=== PATIENT | female | born 1940 | race Caucasian/White ===

== ENCOUNTER 2023-04-24 09:26 | Outpatient (CLI) | payer MEDICARE, SELFPAY | END 2023-04-24 09:27 | disposition home or self-care (01) | LOC: NFLDREF 04-25 08:44 | PROVIDERS: PCP Internal Medicine; Visit Provider Internal Medicine | DX: Z00.00 Encounter for general adult medical examination without abnormal findings (principal); E78.5 Hyperlipidemia, unspecified; E03.9 Hypothyroidism, unspecified; M85.80 Other specified disorders of bone density and structure, unspecified site; I10 Essential (primary) hypertension; E78.41 Elevated Lipoprotein(a) | CPT/HCPCS: 80053; 80061; 82306; 84439; 84443 ==

== ENCOUNTER 2023-07-04 12:56 | Outpatient (CLI) | payer MEDICARE, SELFPAY | END 2023-07-04 12:57 | disposition home or self-care (01) | LOC: NFLDREF 07-06 09:26 | PROVIDERS: PCP Internal Medicine; Referring Provider Internal Medicine; Visit Provider Family Medicine | DX: N39.0 Urinary tract infection, site not specified (principal) | CPT/HCPCS: 87086 ==

== ENCOUNTER 2023-07-24 09:00 | Outpatient (CLI) | payer MEDICARE, SELFPAY | END 2023-07-24 09:01 | disposition home or self-care (01) | LOC: NFLDREF 07-26 16:51 | PROVIDERS: PCP Internal Medicine; Referring Provider Internal Medicine; Visit Provider Internal Medicine | DX: E03.9 Hypothyroidism, unspecified (principal) | CPT/HCPCS: 84443 ==

== ENCOUNTER 2024-04-21 09:30 | Outpatient (CLI) | payer MEDICARE, SELFPAY ==
--- OUTSIDE RECORDS SUMMARY | 2024-04-22 15:39 | XMS_ITS | Clinical Summary ---
Author Organization [facility] Address [place], [place] [address] Care Team Providers Care Domestic Housekeeper Name Role Phone Jesús Mckeon MD Unavailable Natacha Talbot DO Unavailable Kush Finch MD Primary Care Provider [phone] Allergies No known active allergies Medications Medication Sig Dispensed Refills Start Date End Date Status acetaminophen SR (TYLENOL ARTHRITIS PAIN) 650 mg Extended-Release tablet Take 1 tablet by mouth every 8 hours if needed for Other (Specify) (arthritis). Max acetaminophen dose: 4000mg in 24 hrs. 0 10/25/2015 Active coenzyme q10 (CO Q-10) 100 mg cap Take 1 capsule by mouth once daily. 0 10/25/2015 Active VOLTAREN gelIndications:Pa in in both hands Dispense Voltaren. Apply topically to painful area as needed up to 3 times a day. For hand pain. 1 Tube 3 06/20/2017 Active turmeric root extract 500 mg cap Take 2 caps daily. 0 07/25/2017 Active levothyroxine (SYNTHROID) 75 mcg tabletIndications :Hypothyroidism (acquired) Take 1 tablet by mouth once daily. For thyroid. 90 tablet 2 12/09/2019 Active losartan-hydrochl orothiazide (HYZAAR) 100-25 mg tablet Take 1 Tablet by mouth once daily. 0 06/06/2021 Active metoprolol succinate (Toprol XL) 25 mg Sustained-Release tablet Take 1 Tablet (25 mg) by mouth once daily. 0 06/06/2021 Active omeprazole (PRILOSEC) 20 mg Delayed-Release capsuleIndication s:Chest pain, unspecified type Take 1 Capsule (20 mg) by mouth once daily if needed for GI Upset. 180 Capsule 06/06/2021 Active rosuvastatin (CRESTOR) 40 mg tablet Take 40 mg by mouth at bedtime. 07/24/2022 Active clopidogreL (PLAVIX) 75 mg tabletIndications :Cardiovascular symptoms Take 1 Tablet (75 mg) by mouth once daily. 90 Tablet 3 10/02/2023 Active ezetimibe (ZETIA) 10 mg tabletIndications :Arteriosclerotic heart disease (ASHD) Take 1 Tablet (10 mg) by mouth once daily. 90 Tablet 3 11/27/2023 Active Active Problems Problem Noted Date Diagnosed Date Arteriosclerotic heart disease (ASHD) 07/23/2021 Overview: - 07/22/21: WALI x 2 to mid LAD Hypercalcemia 02/06/2019 Overview: January 2019: very mild, nearly normal on recheck. PTH normal. Likely effect of Hydrochlorothiazide vs other. Hyperopia of both eyes with astigmatism and pres byopia 02/04/2018 Bilateral pseudophakia 02/04/2018 PVD (posterior vitreous detachment), bilateral 0 02/04/2018 Status post left breast implant 01/15/2018 Overview: 01/15/2018: left breast augmentation/implant and right reduction mammoplasty 28 years ago due to breast asymmetry Mass of lower outer quadrant of left breast 01/06 Indeterminate pulmonary nodules 07/13/2016 Overview: 07/2017 Lung conference: Imaging going back to 2010 reviewed and demonstrates very slow growth of bilateral ground glass nodules over the past six years. At this time team recommends ongoing follow-up at yearly intervals. If patient is concerned and would like a diagnosis, consider CT guided biopsy of one of the peripheral nodules. The final treatment plan will be left at the discretion of the patient and the treating physician. Hot flashes 06/28/2015 Overview: Jun 2015: Prior off for estradiol 0.5 mg tablet approved by [employer] until September 2015. Patient states she has tried to go off the medication several times and recurrence of symptoms. [place] palsy 03/11/2015 Overview: February 2015, left side of face. Intracranial meningioma 03/10/2015 Overview: March 2015: MRI of brain at [facility]: Mass effect from Enhancing Extra axial Lesion overlying left frontal parietal vertex, most consistent with a meningioma measuring 2.5cm, localized mass effect on underlying brain parenchyma without edema. 03/18/15: Consult with Dr. Flower, likely incidental, repeat follow up in 6 months. May 2017: stable MRI, follow up in [address] Flower. September 2018 [address]. Flower follow up: A follow-up MRI using the same technique, the same equipment, in 18 months would be appropriate. Aug 2020: follow up with Dr. Flower, suggested repeat MRI in a period of two years, which would put us around August of 2022. Osteopenia of right thigh 02/11/2015 Overview: February 2015: Dexa-scan just barely into the osteopenia range for Femur at T Score - 1.0, other scores slightly better. Repeat in 3-5 years. February 2019: dexa-scan consistent with osteopenia, similar to 2015, recheck in 3-5 years. Chest pain 01/18/2015 Overview: Previous work up including negative angiogram in ?[place]? for left sided chest pain. She was told it was osteoarthritis. Renal failure, unspecified Overview: January 2015: normal renal function as of 2014. Hypothyroidism (acquired) Hyperlipidemia Overview: December 2016: Patient has myalgia, stopping Atorvastatin (Lipitor) to see if improves. Already on Vitamin D and Co-Q10. Essential hypertension Overview: Jun 2018: lisinopril changed to losartan due to cough. January 2019: Losartan/ Hydrochlorothiazide combo, blood pressure high so increased to 1.5 pills daily. Generalized osteoarthrosis, unspecified site Resolved Problems Problem Noted Date Diagnosed Date Resolved Date Nodule of left lung 03/09/2014 07/26/20 17 Overview: 9mm RLL lung nodule stable on Follow up CT dated August 2013, no further imaging needed due to multiyear stability. December 2015: CT Scan in [place], multiple pulmonary nodules improved compared to 2010. Repeat CT Angiogram of Chest shows concerning ground glass changes concerning for possible carcinoma in situ per [facility] read. Jul 2016: Repeat CT Scan, possibility that these multiple groundglass nodules were low-grade adenocarcinomas, watching and repeat CT Scan [address] Kunz. Immunizations Name Administration Dates Next Due AMB Influenza, IIV4 PF (=>6 mos Flulaval,Fluzone Fluarix)(Flu Clinic Only) 06/27/2014 Hepatitis A (Adult) 08/30/2001,01/11/2001 Influenza, High-dose Inactivated 018,06/22/2017,07/17/2016,2014 Influenza, IIV3 (Age >=3 years) 07/30/2003,08/30 Influenza, IIV4 06/27/2014 Pneumococcal Poly,23-Valent (Pneumovax) 08/08/2016,09/27/1999 Pneumococcal conj 13-Valent (Prevnar 13) 01/18/2015 Td (Age >=7 Years) 10/08/1996 Td, Preservative Free (age > = 7 Years) 01/18/2015 Tdap 02/09/2016 Zoster (Zostavax-ZVL, live) 02/09/2016 Family History Medical History Relation Name Comments Other Brother 1 B 1923 [place], IMPL ANTS, BORN 1936 HIGH CHOL, BORN 1924 CABG/DEFIB, D@68 [place] Heart Disease Brother 2 4 brothers, al l heart dz. Other Daughter BORN 1959. BORN 1961, BORN 1966 Other Father d@62 [place] Other Maternal Grandfather D@87 HT Other Maternal Grandmother D@52 BR AIN TUMOR Other Mother d@80 pancreatic cancer/colon polyps Other Paternal Grandmother PGFA NEPTALI TH FROM FLU EPEDEMIC 1917 Other Son D@33 [place] Cancer-breast No Family History Relation Name Status Comments Brother 1 Brother 2 Daughter Father Maternal Grandfather Maternal Grandmother Mother Paternal Grandmother Son Social History Tobacco Use Types Packs/Day Years Used Date Smoking Tobacco: Former Cigarettes 0.2 20 0 10/08/1962 - 10/08/1982 Smokeless Tobacco: Never Alcohol Use Standard Drinks/Week Comments Yes 0 (1 standard drink = 0.6 oz pur e alcohol) One cocktail at night PHQ-2 Answer Date Recorded PHQ-2 Score 0 01/24/2019 Social Connections Answer Date Recorded Frequency of Communication with Friends and Fami ly Not on file 09/28/2021 Financial Resource Strain Answer Date R ecorded Difficulty of Paying Living Expenses Not on file 09/28/2021 Difficulty of Paying Living Expenses Not on file 09/28/2021 Sex and Gender Information Value Date Recorded Sex Assigned at Not on file Gender Identity Not on file Sexual Orientation Not on file Obstetrics History Last Filed Vital Signs Vital Sign Reading Time Taken Comments Blood Pressure 124/68 10/26/2023 10:22 AM INVESTIGATIVE ASSISTANT Pulse 68 10/26/2023 10:22 AM INVESTIGATIVE ASSISTANT Temperature 37 ??C (98.6 ??F) 07/23/2021 7:40 AM CDT Respiratory Rate 16 07/23/2021 7:40 AM CDT Oxygen Saturation 98% 10/26/2023 10:22 AM INVESTIGATIVE ASSISTANT Inhaled Oxygen Concentration - - Weight 61.7 kg (136 lb) 10/26/2023 10:22 AM INVESTIGATIVE ASSISTANT Height 151.8 cm (4' 11.76) 10/26/2023 10:22 AM INVESTIGATIVE ASSISTANT Body Mass Index 26.77 10/26/2023 10:22 AM INVESTIGATIVE ASSISTANT Plan of Treatment Health Maintenance Due Date Last Done Comments Zoster (shingles) series for age 50+ (2 of 3) 04/05/2016 02/09/2016 Depression screening for age 12+ 01/25/2020 01/24/2019, 01/21/2018, 01/18/2018, Additional history exists Medicare Wellness for age 65+ 01/25/2020, 01/21/2018, 01/19/2017, Additional history exists COVID-19 vaccine series ( season) 2023 08/25/2021, 12/04/2020, 11/13/2020 Influenza for age 65+ 06/08/2024 06/25/2018 , 06/22/2017, 07/17/2016, Additional history exists BMI (ht and wt on same day) for age 18+ 10/26/2024 10/26/2023, 08/16/2022, 08/26/2021, Additional history exists Tetanus booster 02/08/2026 02/09/2016, 01/06, 10/08/1996 Tdap Completed 02/09/2016 Pneumococcal series for age 65+ Completed 08/08/2016, 01/18/2015, 09/27/1999 DEXA/DXA scan for age 65+ Completed 2018, 01/28/2015, 08/18/2013 Procedures Procedure Name Priority Date/Time Associated Diagnosis Comments XR DXA BONE DENSITY 2 SITES AXIAL Routine 02/03/2019 11:13 AM CDT Menopause from Last 3 Months or Most Recently Relevant to Health Maintenance Results * (ABNORMAL) XR DXA BONE DENSITY 2 SITES AXIAL (02/03/2019 11:13 AM CDT) Anatomical Region Laterality Modality Spine, HIPS, HIPL, HIPR Other Narrative 02/07/2019 5:06 PM CDT Please see scanned document for results of this study. Aamir Eugene MD DEXA from Last 3 Months or Most Recently Relevant to Health Maintenance Advance Directives Documents on File Type Date Recorded Patient Preparator Expl anation Healthcare Directive 02/13/2018 10:06 AM * Full Code (Latest Code Status on File) Date Activated Date Inactivated Comments 07/22/2021 3:48 PM 07/23/2021 2:36 PM Question Answer Comments Code Status Discussion: Discussed Care Teams Domestic Housekeeper Relationship Specialty Start Date End Date Kush Finch MD [facility] [facility] [place] [address] PCP - General Family Practice 8/6/21 Jesús Mckeon MD [address] [place] [address] Dermatology 01/20/16 Natacha Talbot DO [address] [facility] [address] [place] [address] Pulmonology Pulmonary Medicine 01/24/19
== END 2024-04-21 09:31 | disposition home or self-care (01) ==
LOC: NFLDREF 04-22 15:37
PROVIDERS: PCP Internal Medicine; Referring Provider Internal Medicine; Visit Provider Internal Medicine
DX: E78.5 Hyperlipidemia, unspecified (principal); I10 Essential (primary) hypertension; E03.9 Hypothyroidism, unspecified; M85.80 Other specified disorders of bone density and structure, unspecified site
CPT/HCPCS: 80048; 80061; 82306; 84443

== ENCOUNTER 2024-09-14 11:03 | Outpatient (CLI) | payer MEDICARE, SELFPAY ==
--- OUTSIDE RECORDS SUMMARY | 2024-09-17 06:29 | XMS_ITS | Clinical Summary ---
Author Organization [facility] Address [place], [place] [address] Care Team Providers Care Ad Compositor Name Role Phone Jesús Mckeon MD Unavailable Natacha Talbot DO Unavailable Kush Finch MD Primary Care Provider [phone] Allergies No known active allergies Medications acetaminophen SR (TYLENOL ARTHRITIS PAIN) 650 mg Extended-Releas e tablet Take 1 tablet by mouth every 8 hours if needed for Other (Specify) (arthritis). Max acetaminophen dose: 4000mg in 24 hrs. 0 10/25/19 16 Active coenzyme q10 (CO Q-10) 100 mg cap Take 1 capsule by mouth once daily. 0 10/25/19 16 Active VOLTAREN gelIndications: Pain in both hands Dispense Voltaren. Apply topically to painful area as needed up to 3 times a day. For hand pain. 1 Tube 3 06/20/20 17 Active turmeric root extract 500 mg cap Take 2 caps daily. 0 07/25/20 17 Active levothyroxine (SYNTHROID) 75 mcg tabletIndicatio ns:Hypothyroidi sm (acquired) Take 1 tablet by mouth once daily. For thyroid. 90 tablet 2 12/09/19 20 Active losartan-hydroc hlorothiazide (HYZAAR) 100-25 mg tablet Take 1 Tablet by mouth once daily. 0 06/06/20 21 Active metoprolol succinate (Toprol XL) 25 mg Sustained-Relea se tablet Take 1 Tablet (25 mg) by mouth once daily. 0 06/06/20 21 Active omeprazole (PRILOSEC) 20 mg Delayed-Release capsuleIndicati ons:Chest pain, unspecified type Take 1 Capsule (20 mg) by mouth once daily if needed for GI Upset. 180 Capsule 06/06/20 21 Active rosuvastatin (CRESTOR) 40 mg tablet Take 40 mg by mouth at bedtime. 07/24/20 22 Active ezetimibe (ZETIA) 10 mg tabletIndicatio ns:Arterioscler otic heart disease (ASHD) Take 1 Tablet (10 mg) by mouth once daily. 90 Tablet 3 11/27/19 24 Active clopidogreL (PLAVIX) 75 mg tabletIndicatio ns:Cardiovascul ar symptoms Take 1 Tablet (75 mg) by mouth once daily. 90 Tablet 3 09/15/20 24 Active clopidogreL (PLAVIX) 75 mg tabletIndicatio ns:Cardiovascul ar symptoms Take 1 Tablet (75 mg) by mouth once daily. 90 Tablet 3 10/02/20 23 024 Discontin ued(Reord er (E-cancel not sent)) Active Problems Problem Noted Date Diagnosed Date Multiple lung nodules on CT 09/09/2024 Arteriosclerotic heart disease (ASHD) 07/23/2021 Overview (07/23/2021): - 07/22/21: WALI x 2 to mid LAD Hypercalcemia 02/06/2019 Overview (02/06/2019): January 2019: very mild, nearly normal on recheck. PTH normal. Likely effect of Hydrochlorothiazide vs other. Hyperopia of both eyes with astigmatism and pres byopia 02/04/2018 Bilateral pseudophakia 02/04/2018 PVD (posterior vitreous detachment), bilateral 0 02/04/2018 Status post left breast implant 01/15/2018 Overview (01/15/2018): 01/15/2018: left breast augmentation/implant and right reduction mammoplasty 28 years ago due to breast asymmetry Mass of lower outer quadrant of left breast 01/06 Indeterminate pulmonary nodules 07/13/2016 Overview (01/15/2018): 07/2017 Lung conference: Imaging going back to [...] and the treating physician. Hot flashes 06/28/2015 Overview (06/28/2015): Jun 2015: Prior off for estradiol 0.5 mg tablet approved by [facility] until September 2015. Patient states she has tried to go off the medication several times and recurrence of symptoms. Israel palsy 03/11/2015 Overview (03/12/2015): February 2015, left side of face. Intracranial meningioma 03/10/2015 Overview (08/11/2020): March 2015: MRI of brain at [facility]: Mass effect from Enhancing Extra axial [...] of 2022. Osteopenia of right thigh 02/11/2015 Overview (02/07/2019): February 2015: Dexa-scan just barely into the osteopenia range for Femur at T Score - 1.0, other scores slightly better. Repeat in 3-5 years. February 2019: dexa-scan consistent with osteopenia, similar to 2014, recheck in 3-5 years. Chest pain 01/18/2015 Overview (01/18/2015): Previous work up including negative angiogram in ?[place]? for left sided chest pain. She was told it was osteoarthritis. Renal failure, unspecified Overview (01/18/2015): January 2015: normal renal function as of labs 2014. Hypothyroidism (acquired) Hyperlipidemia Overview (12/22/2016): December 2016: Patient has myalgia, stopping Atorvastatin (Lipitor) to see if improves. Already on Vitamin D and Co-Q10. Essential hypertension Overview (01/25/2019): Jun 2018: lisinopril changed to losartan due to cough. January 2019: Losartan/ Hydrochlorothiazide combo, blood pressure high so increased to 1.5 pills daily. Generalized osteoarthrosis, unspecified site Resolved Problems Problem Noted Date Diagnosed Date Resolved Date Nodule of left lung 03/09/2014 07/26/20 17 Overview (07/23/2016): 9mm RLL lung nodule stable on Follow up CT dated August 2013, no further imaging needed due to multiyear stability. December 2015: CT Scan in [place], multiple pulmonary nodules improved compared to 2010. Repeat CT Angiogram of Chest shows concerning ground glass changes concerning for possible carcinoma in situ per [facility] read. Jul 2016: Repeat CT Scan, possibility that these multiple groundglass nodules were low-grade adenocarcinomas, watching and repeat CT Scan [address] Kunz. Encounters Date Type Department Care Team Description 09/15/[address] [facility] [address] [place] [address] Jules Elliott MD Refill Request 09/09/2024 Telephone [facility] [place] [address] [address] [place] [address] Yesica Najera MD 08/29/2024 Orders Only [facility] Scanner 1 scan: (1-Ord) [facility], CHEST W/O CONTRAST, 08/29/2024 from Last 3 Months Immunizations Name Administration Dates Next Due AMB [...] Name Comments Other Brother 1 B 1923 [place], IMPL ANTS, BORN [birth year] HIGH CHOL, BORN 1924 CABG/DEFIB, D@68 [place] Heart Disease Brother 2 4 brothers, al l heart dz. Other Daughter BORN 1959. BORN 1961, BORN 1966 Other Father d@62 [place] Other Maternal Grandfather D@87 HT Other Maternal Grandmother D@52 BR AIN TUMOR Other Mother d@80 pancreatic cancer/colon polyps Other Paternal Grandmother PGFA NEPTALI TH FROM FLU EPEDEMIC 1917 Other Son D@33 [place] Cancer-breast No Family History Relation Name Status [...] Answer Date Recorded PHQ-2 Score 0 01/24/2019 Financial Resource Strain Answer Date R ecorded Difficulty of Paying Living Expenses Not on file 09/28/2021 Difficulty of Paying Living Expenses Not on file 09/28/2021 Comments No Sex and Gender Information Value Date Recorded Sex Assigned at Not on file Legal Sex Female 5:39 AM THIRD MATE Gender Identity Not on file Sexual Orientation Not on file Obstetrics History Last Filed Vital Signs Vital Sign Reading Time Taken Comments Blood Pressure 124/68 10/26/2023 10:22 AM THIRD MATE Pulse 68 10/26/2023 10:22 AM THIRD MATE Temperature 37 C (98.6 F) 07/23/2021 7:40 AM CDT Respiratory Rate 16 07/23/2021 7:40 AM CDT Oxygen Saturation 98% 10/26/2023 10:22 AM THIRD MATE Inhaled Oxygen Concentration - - Weight 61.7 kg (136 lb) 10/26/2023 10:22 AM THIRD MATE Height 151.8 cm (4' 11.76) 10/26/2023 10:22 AM THIRD MATE Body Mass Index 26.77 10/26/2023 10:22 AM THIRD MATE Plan of Treatment Upcoming Encounters Date Type Department Care Team (Late st Contact Info) Description 09/17/2024 11:20 AM THIRD MATE Office Visit [facility] [address] [place] [phone] [place] [address] [facility] [address] [place] [address] 12/12/2024 1:00 PM THIRD MATE Office Visit [facility] [place] [address] [facility] [address] [place] [address] Yesica Najera MD [address] [place], [place] [id number] Health Maintenance Due Date Last Done Comments RSV vaccine for adults or (1 - 1-dose 75+ series) 02/20/2015 Zoster (shingles) series for age 50+ (2 of 3) 04/05/2016 02/09/2016 Depression screening for age 12+ 01/25/2020 01/24/2019, 01/21/2018, 01/18/2018, Additional history exists Medicare Wellness for age 65+ 01/25/2020, 01/21/2018, 01/19/2017, Additional history exists COVID-19 vaccine series ( season) 2024 08/25/2021, 12/04/2020, 11/13/2020 Influenza for age 65+ [...] Procedure Name Priority Date/Time Associated Diagnosis Comments SCAN-CT INTERPRETATION 12:00 AM THIRD MATE XR DXA BONE DENSITY 2 SITES AXIAL Routine 02/03/2019 11:13 AM CDT Menopause from Last 3 Months or Most Recently Relevant to Health Maintenance Results * SCAN-CT INTERPRETATION (08/29/2024 12:00 AM THIRD MATE) Anatomical Region Laterality Modality Other us Scanner OTHER Final Result * (ABNORMAL) XR DXA BONE DENSITY 2 SITES AXIAL (02/03/2019 11:13 AM CDT) Anatomical Region Laterality Modality Spine, HIPS, HIPL, HIPR Other Narrative 02/07/2019 5:06 PM CDT Please see scanned document for results of this study. us Aamir Eugene MD DEXA Final Res ult from Last 3 Months or Most Recently Relevant to Health Maintenance Insurance [facility] MEDICARE ADVANTAGE MR Advance Directives Documents on File Type Date Recorded Patient Kitchenwhere Maker Expl anation Healthcare Directive 02/13/2018 10:06 AM * Full Code (Latest Code Status on File) Date Activated Date Inactivated Comments 07/22/2021 3:48 PM 07/23/2021 2:36 PM Question Answer Comments Code Status Discussion: Discussed Care Teams Ad Compositor Relationship Specialty Start Date End Date Kush Finch MD [address] [place] [address] PCP - General Family Practice 05/13/21 Jesús Mckeon MD [address] [place] [address] Dermatology 01/20/16 Natacha Talbot DO [address] [place] [address] Pulmonology Pulmonary Medicine 01/24/19
== END 2024-09-14 11:04 | disposition home or self-care (01) ==
LOC: NFLDREF 09-17 06:27
PROVIDERS: PCP Internal Medicine; Referring Provider Internal Medicine; Visit Provider Physician Assistant
DX: N30.01 Acute cystitis with hematuria (principal); B96.20 Unspecified Escherichia coli [E. coli] as the cause of diseases classified elsewhere
CPT/HCPCS: 87086; 87186

== ENCOUNTER 2024-10-24 14:04 | Outpatient (CLI) | payer MEDICARE, SELFPAY | END 2024-10-24 14:05 | disposition home or self-care (01) | LOC: NFLDREF 10-27 05:47 | PROVIDERS: PCP Internal Medicine; Referring Provider Internal Medicine; Visit Provider Family Medicine | DX: R39.9 Unspecified symptoms and signs involving the genitourinary system (principal); N39.0 Urinary tract infection, site not specified | CPT/HCPCS: 87086 ==

== ENCOUNTER 2025-04-30 08:31 | Outpatient (CLI) | payer MEDICARE, SELFPAY | END 2025-04-30 08:32 | disposition home or self-care (01) | LOC: NFLDREF 05-01 07:58 | PROVIDERS: PCP Internal Medicine; Referring Provider Internal Medicine; Visit Provider Internal Medicine | DX: E03.9 Hypothyroidism, unspecified (principal); I10 Essential (primary) hypertension; E78.5 Hyperlipidemia, unspecified; M85.80 Other specified disorders of bone density and structure, unspecified site | CPT/HCPCS: 80048; 80061; 82306; 84443 ==

== ENCOUNTER 2025-10-05 11:01 | Outpatient (CLI) | payer MEDICARE, SELFPAY | END 2025-10-05 11:02 | disposition home or self-care (01) | LOC: NFLDREF 10-06 14:39 | PROVIDERS: PCP Internal Medicine; Referring Provider Internal Medicine; Visit Provider Family Medicine | DX: R30.9 Painful micturition, unspecified (principal); N39.0 Urinary tract infection, site not specified | CPT/HCPCS: 87086 ==